=== PATIENT | female | born 2000 | race Caucasian/White ===

== ENCOUNTER 2021-05-29 22:34 | Emergency (ER) | payer OTHER ==
[2021-05-29 23:04] LABS: HEMOGLOBIN 12.6 gm/dl (12.3-15.3); RED BLOOD COUNT 4.44 M/UL (4.00-5.10); WHITE BLOOD COUNT 8.1 K/UL (4.5-11.0)
[2021-05-29 23:50] LABS: BUN/CREATININE RATIO 20 (0-10)
== END 2021-05-30 00:48 | disposition home or self-care (01) ==
LOC: ER1 22:34
PROVIDERS: Physician Assistant
DX: M94.0 Chondrocostal junction syndrome [Tietze] (principal)
CPT/HCPCS: 71045; 80053; 82550; 82553; 83874; 84484; 85025; 93005; 99285